=== PATIENT | male | born 1955 | race Caucasian/White ===

== ENCOUNTER 2016-09-01 10:19 | Emergency (ER) | payer MEDICARE ==
[~2016-09-01] VITALS: Ht 182.9 cm; Wt 106.0 kg
[2016-09-01 10:20] VITALS: BP 122/76
== END 2016-09-01 11:01 | disposition home or self-care (01) ==
LOC: ED 10:37
DX: H65.01 Acute serous otitis media, right ear (principal); H72.91 Unspecified perforation of tympanic membrane, right ear
CPT/HCPCS: 99283

== ENCOUNTER 2016-09-02 13:47 | Emergency (ER) | payer MEDICARE ==
[~2016-09-02] VITALS: Ht 182.9 cm; Wt 107.5 kg
[2016-09-02 13:50] VITALS: BP 150/94
== END 2016-09-02 15:16 | disposition home or self-care (01) ==
LOC: ED 15:10
DX: H60.321 Hemorrhagic otitis externa, right ear (principal)
CPT/HCPCS: 99283